=== PATIENT | female | born 1945 | race Hispanic/Latino ===

== ENCOUNTER 2017-11-28 19:06 | Inpatient (IN) | payer MEDICAID, MEDICARE, OTHER ==
[~2017-11-28] VITALS: Ht 157.5 cm; Wt 55.3 kg
[2017-11-28 19:15] VITALS: BP 146/97
--- NOTE | 2017-11-28 21:01 | PSYCH ---
DATE OF SERVICE: 11/28/2017 INITIAL PSYCHIATRIC ADMISSION NOTE CHIEF COMPLAINT: The patient was having aggressive and assaultive behavior towards family members. The patient was threatening suicide. HISTORY OF PRESENT ILLNESS: The patient is a 72-year-old female who is an involuntary admission to the [facility]. The patient is extremely confused. She is not able to answer questions very well. She was oriented to person only. She was able to state her birthdate. She did not know her age. She was disoriented to place, time, and situation. She thought she was in [place]. She reportedly came from [facility] where she was brought for medical clearance due to having aggressive behavior. She reportedly was moving from [place] to [place] with her daughter who was going to try to take care of her. The daughter was reportedly not able to take care of her due to her assaultive and aggressive behavior. The patient had also made suicidal comments and reportedly drank bleach over the past few days. She was medically cleared at the [facility] ER. The patient was cooperative during the interview. She was not able to state what her mood was like. She was in no distress during the interview. She reported sleeping well at night. She reported having a normal appetite. She denied any auditory or visual hallucinations. She did not appear to be having any auditory or visual hallucinations. She has delusional thinking related to her dementia. She has a very poor short-term memory. She was not manic or hypomanic. She has a moderate anxiety level. She is not able to give any other reliable history of present illness at this time. She did deny any physical pain. She does not know any medications that she has taken recently. She was being given Haldol and Ativan in the ER at [facility] due to aggressive behavior per reports. PAST PSYCHIATRIC HISTORY: Unknown at this time. It is unknown if she has ever taken any psychotropic medications. It is unknown if she has ever attempted suicide before. PAST MEDICAL HISTORY: Unknown. It is known that she has dementia. Other medical issues are not known at this time, and the patient was not able to give any history. CURRENT MEDICATIONS: Unknown at this time. ALLERGIES: NO KNOWN DRUG ALLERGIES. FAMILY PSYCHIATRIC HISTORY: None reported. SOCIAL HISTORY: The patient denies using alcohol, illicit drugs or tobacco. The patient reported having 4 children. She denies being . She reported being from [place]. She was not able to give any other reliable social history at this time. OBJECTIVE VITAL SIGNS: Temperature is 98.7, pulse is 73, respirations 19, O2 saturations 98% on room air, blood pressure is 146/97. The patient was in no physical pain or distress at the time of the interview. REVIEW OF SYSTEMS: CONSTITUTIONAL: No recent changes in weight. No fatigue. No insomnia. NEUROLOGICAL: No tremors. No weakness. No dizziness. PSYCHIATRIC: Positive for depression. Positive for anxiety. Positive for delusional thinking. Positive for hallucinations. No ezekiel. GASTROINTESTINAL: No diarrhea, no constipation, no nausea, no vomiting, no gross symptoms. GENITOURINARY: No problems urinating. No pain on urination reported. CARDIOVASCULAR: No chest pain or chest palpitations. RESPIRATORY: No shortness of breath. No wheezing or coughing. SKIN: No skin problems reported. ENDOCRINE: No heat or cold intolerance. EXTREMITIES: No swelling or edema. EYES: No recent changes in vision. EARS: No recent changes in hearing. Review of systems is otherwise negative and reviewed by Dr. Carpenter. The patient will be seeing Dr. Weir for general medical health issues. MENTAL STATUS EXAMINATION: MUSCLE STRENGTH AND TONE: Within normal limits for age. GAIT AND STATION: Within normal limits for age. APPEARANCE: Well groomed and good hygiene. Appears stated age. Casual attire. Normal weight. ATTITUDE AND BEHAVIOR: Uncooperative. Poor eye contact. Psychomotor agitation in the past 24 hours. MOOD AND AFFECT: Mood is up and down. Affect is labile. ATTENTION/CONCENTRATION: Poor attention and poor concentration. SPEECH: Low volume and low grade. JUDGMENT/INSIGHT: Poor judgment and poor insight. THOUGHT PROCESS: Disorganized. Loose and tangential. LANGUAGE: Lithuanian. THOUGHT CONTENT: Negative for suicidal or homicidal ideation currently. Negative for auditory or visual hallucinations currently. Negative for paranoia currently. FUND OF KNOWLEDGE: Below average. ASSOCIATIONS: Loose associations. MEMORY: Recent and remote memory are both impaired. STRENGTHS: Current physical health. WEAKNESSES: Poor insight and judgment. Poor memory. ASSESSMENT: Delusional disorder; Alzheimer-type dementia with behavior disturbance; generalized anxiety disorder; depression. TREATMENT PLAN: 1. The patient will be an involuntary admission at the [facility]. The patient will be monitored closely for behaviors. 2. The patient will be started on Risperdal 0.25 mg p.o. b.i.d. The patient will be started on Haldol 2 mg p.o. or IM every 4 hours p.r.n. agitation. The patient will be started on Ativan 0.5 mg p.o. or IM every 4 hours p.r.n. anxiety. 3. The patient will see Dr. Weir or Dr. Ohara for general medical health issues. 4. The patient was encouraged to participate in all groups and activities. Sue Carpenter IV MD DR: /laurel JOB# [id number]
[2017-11-28] MEDS ORDERED: HALDOL PO PRN (21:30)
[2017-11-28] MEDS ORDERED: ATIVAN IM PRN (21:30)
[2017-11-28] MEDS ORDERED: HALDOL IM PRN (21:30)
[2017-11-28] MEDS ORDERED: RISPERDAL PO ONE (22:00)
--- NOTE | 2017-11-28 22:00 | NUR ---
ADMIT Patient admitted to BHU at [facility] with dx of delusional disorder by Dr Carpenter. Patient arrived ambulatory with 2 [place] officers and [facility] information security systems instructor. Patient to be discharged to fdc on discharge from unit by Dr Carpenter. Patient involuntary.
[2017-11-29 07:45] VITALS: BP 101/64
--- NOTE | 2017-11-29 12:10 | NUR ---
SYMPTOMATOLOGY: PT WAS ADMITTED FOR BEHAVIORS SHE WAS EXHIBITING AT HOME. PT RECENTLY MOVED HERE FROM [place] AND WAS LIVING WITH HER DAUGHTER IN [place]. PT WAS BROUGHT TO [facility] BY HER FAMILY TO GET EVALUATED. PT WAS NOT ACTING LIKE HER SELF, REFUSING TO SHOWER, HITTING FAMILY, VOICING SUICIDAL IDEATIONS, HEARING VOICES, AND BANGING HER HEAD. PT WAS INVOLUNTARILY COMMITTED INTO THE BEHAVIORAL HEALTH UNIT FOR FURTHER MANAGEMENT. GOAL UPON DISCHARGE IS TO GO INTO A RESIDENTIAL. SS TO CONTINUE TO FOLLOW AND ASSIST WITH DISCHARGE PLANNING. Addendum: 11/30/17 at 1610 by Irina RODRIGUEZ CM Amended: Links added.
--- NOTE | 2017-11-29 12:14 | NUR ---
MMSE SCORE 11: FINDINGS INDICATE SIGNIFICANT IMPAIRMENTS. Addendum: 11/29/17 at 1217 by Irina RODRIGUEZ CM Amended: Links added.
--- NOTE | 2017-11-29 12:17 | NUR ---
GMAS SCORE : FINDINGS INDICATE PT IS WITHIN THE "NORMAL" RANGE. Addendum: 11/29/17 at 1217 by Irina RODRIGUEZ CM Amended: Links added.
--- NOTE | 2017-11-29 17:21 | NUR ---
PIRP P: Altered thought process I: Monitor for changes in usual behavior, assess for hallucinations or delusions, provide task-oriented activities, q15 min monitoring, give clear and simple instructions, redirect with verbalization, give medications as ordered, assist with differentiating between internal and external reality, reinforce unit rules, provide 1:1 to encourage expression of feelings R: Pt has had pleasant, cooperative affect throughout shift. Has not exhibited threatening or combative behaviors, has been cooperative with ADLs, medical dermatologist, and group activities. Interacts appropriately with staff and peers, alert and oriented to self. Became tearful after lunch, believed someone stole her wallet, was able to redirect. Wanders @ times, but has not been exit-seeking. Denies depression, anxiety, SI/HI. States, "I like people. I like talking to them. I'm going to do what I need to do to get better and if that means being here, then I'm ok with it." P: Pt reports she will take her medicine and participate to "get better."
[2017-11-29 19:48] VITALS: BP 137/72
[2017-11-29] MEDS: RISPERDAL PO SCH (20:30)
--- NOTE | 2017-11-29 22:19 | NUR ---
Behavior pt has exhibited inappropriate behavior this p.m. several attempts are made to redirect without success. pt wonders in hallway, stating she wants to go home and wants to speak to her daughter. Pt. cont to become more and more agitated Ativan po offered and pt refused by 3 nursing staff then pt went to alexander phone and started calling unable to redirect pt ended up call tate mercado and an officer came to door pt cont to state she wanted to go home and that she was being held against her will pt escorted to room and received Ativan 0.5mg po for increase agitation will cont to monitor pt's behavior
--- NOTE | 2017-11-29 22:59 | CNH ---
DATE OF CONSULTATION: 11/29/2017 REFERRING PHYSICIAN: Dr. Carpenter, Psychiatry. REASON FOR CONSULTATION: Medical management of multiple medical problems. HISTORY OF PRESENT ILLNESS: The patient is a 72-year-old woman with a past medical history significant for probably some baseline dementia who was transferred here from an outside hospital for admission to the [facility] unit. She reportedly has had some aggressive behavior. She recently moved from [facility] to live with her daughter. Her functional status seems to be pretty good. Her baseline medical and mental status is unclear at this time. She does not smoke. It is not known for her to be on any routine home medications. PAST MEDICAL HISTORY: Dementia. PAST SURGICAL HISTORY: She has had forearm surgery for right forearm fracture. ALLERGIES: NO KNOWN DRUG ALLERGIES. HOME MEDICATION LIST: Does not take any routine home medications reportedly. SOCIAL HISTORY: Lives with her daughter. No alcohol, tobacco or illicit drug use history. FAMILY HISTORY: Negative for early coronary artery disease or diabetes. REVIEW OF SYSTEMS: CARDIAC: Denies chest pain, shortness of breath or dyspnea on exertion. PULMONARY: No cough, sputum production or pleuritic chest pain. GASTROINTESTINAL: No nausea, vomiting, diarrhea or constipation. All else negative in 10 point review of system except as in HPI. PHYSICAL EXAMINATION: VITAL SIGNS: Upon arrival to [facility] Unit, height 157.5 cm, weight 57.8 kilograms. Temperature 98.7, pulse of 73, respiratory rate is 19, blood pressure 146/97, O2 saturation 98% on room air. GENERAL: She is alert, in no acute distress at time of exam. HEENT: Pupils equal, round, and reactive to light. Sclerae are anicteric. Oropharynx is clear. Mucous membranes are moist. NECK: Supple, no lymphadenopathy. CARDIOVASCULAR: At time of exam is regular rate and rhythm. LUNGS: Clear bilaterally. No wheezing. ABDOMEN: Soft. Bowel sounds are present, nontender to palpation. EXTREMITIES: No cyanosis, clubbing or significant edema. NEUROLOGIC: Grossly nonfocal. LABORATORY DATA: Most recent labs from yesterday, sodium 137, potassium 3.5, chloride 109, CO2 is 20, BUN 10, creatinine 0.6, glucose 100, calcium is 8.2. CBC, white count 7.6, hemoglobin 13.0, platelets 247. Urine drug screen is negative. UA, pH is 6.5, specific gravity is 1.015, all else is essentially negative. ASSESSMENT AND PLAN: The patient is a 72-year-old woman here with dementia with aggressive behavior with no known chronic medical problems. 1. We will treat symptomatically for any p.r.n. pain and nausea. 2. Ambulate as tolerated. 3. We will follow clinically; there does not appear to be any acute medical issues with this patient at this time. Time spent on the consult, history and physical is 45 minutes on 11/29/2017. Paco Weir MD DR: CHELE/laurel JOB# [id number]
--- NOTE | 2017-11-29 23:40 | NUR ---
Reassessment pt is resting quietly at this time will cont to monitor pt's behavior
--- NOTE | 2017-11-30 04:48 | NUR ---
DUNIA P DTS.Dementia with behaviors, Alteration in Mood I Encourage patient to be medication compliant, Discourage self harm behaviors if observed. Monitor patient every 15 minutes for safety. Encourage patient to sleep 8 hours nightly. Discourage threatening assaultive behavior. Observe for unusual behavior. R Patient has been medication compliant until last pm when she was mad that she could not leave unit. Patent said she was leaving to go to [place] and we were not going to stop her. Nurses attempted to explain to her that she was in [facility] of [facility] and that Dr would let her go home when she was feeling better. Patient mad and called Social Group Worker then called [place] [employer] using phone on wall then trying to hit nursing staff with phone when we got close to her. Patient was also hitting wall with phone crayon painter. Patient was escorted to her room and received an injection. Patient has not displayed any self harming behaviors and has been monitored every 15 minutes. Patient has slept 6 hours so far .Threatening assaultive behavior was discouraged . Patient had done well helping other patient and talking to peers until she became agitated and mad last pm P Continue plan of care.
[2017-11-30 07:46] VITALS: BP 113/65
[2017-11-30] MEDS: RISPERDAL PO SCH ×2 (08:36→20:42)
--- NOTE | 2017-11-30 15:32 | NUR ---
PIRP P: Altered thought process I: Monitor for changes in usual behavior, q15 min monitoring, assess for hallucinations and delusions, assist with differentiating between internal and external reality, give clear and simple instructions, give medications as ordered, re-orient to surroundings, reinforce unit rules, alternate rest/activity, provide 1:1 to encourage expression of feelings, provide task-oriented activities R: Pt has had pleasant, cooperative affect majority of shift. Began increasingly restless and confused after lunch. Began wandering a[place]ander, asking staff if she could leave or call her daughter. Has poor memory, is alert and oriented to self. Denies depression, anxiety, SI/HI. Exhibits varying delusions, but has been able to be redirected with verbalization. States, "I wouldn't say I'm happy, but I'm not mad or anything like that. My grandkids are ok, so is my daughter, so I'm ok with that." Interacts appropriately with staff and peers. Has not exhibited threatening or combative behaviors. P: Pt reports she is going to call a Taxi service and go back to [place] to get her purse and keys from her daughter.
[2017-11-30] MEDS: ATIVAN PO PRN (19:32)
--- NOTE | 2017-11-30 19:35 | NUR ---
Behaviors pt has been exhibiting inappropriate behavior she has been wondering in hallway going into peers room requiring redirection pt is crying and asking peers and staff to help her get home several attemps made to reorient pt without success. pt is becoming more anxious received Ativan mg po at this time will cont to monitor pt's behavior
[2017-11-30 20:00] VITALS: BP 140/69
--- NOTE | 2017-11-30 20:39 | NUR ---
Reassessment pt cont to ask about going home and her daughter but is able to be redirected at times cont to be intrusive with peers and requires redirection will cont. to monitor pt's behavior
--- NOTE | 2017-11-30 21:20 | NUR ---
Demographic information Patients daughter Geni Cuellar called and reported that she would be gone for 2 weeks and that her sister Pauly Maxwell would be available if needed. Pauly Maxwell is patients power of privacy attorney. Pauly Maxwell phone number is [phone]. PBX notified and will correct demographic sheet and fax to [facility] to place in patients chart.
--- NOTE | 2017-12-01 05:39 | NUR ---
PIRP P DTS I Patient to be given meds as ordered by . Discourage self harming behaviors. Monitor for patient safety every 15 minutes. Encourage patient to sleep 8 hours nightly. Encourage patient to eat well balanced meals. R Patient has taken meds as directed . Patient has not displayed any self harming behaviors tonight. Patient has been monitored for safety every 15 minutes . Patient has slept 5 hours. Patient did have a snack last pm and tolerated well. Patient thinking she was going home to day to do to [place] with her daughter. It was explained to patient that she was in [facility] and Dr will discharge her when he feels she is ready. Patient did finally go to bed and to sleep. P Continue plan of care.
[2017-12-01] MEDS: TYLENOL PO PRN (07:41)
[2017-12-01] MEDS: RISPERDAL PO SCH ×2 (07:41→20:04)
[2017-12-01 08:18] VITALS: BP 143/71
[2017-12-01] MEDS ORDERED: TYLENOL #3 PO PRN (13:30)
--- NOTE | 2017-12-01 15:20 | NUR ---
PIRP: P; ALTERATION IN MOOD I: MONITOR PT. Q 15 MINUTES, PROVIDE SAFE AND SUPPORTIVE ENVIRONMENT, PROVIDE MEDICATION ORDERED BY PHYSICIAN, PROVIDE 1:1 ALLOWING PT. TO EXPRESS THOUGHTS AND FEELINGS, PROVIDE QUIET ENVIRONMENT FOR SLEEP AT NIGHT. MONITOR AND RECORD % OF EACH MEAL DAILY. R: Q 15 MINUTE CHECKS DONE, PT. HAS A SAFE AND SUPPORTIVE ENVIRONMENT, PT. TAKING MEDS ORDERED BY PHYSICIAN. PT. SLEPT 7.25 HOURS LAST NIGHT. ATE 90% FOR BREAKFAST, 75% FOR LUNCH. P: CONTINUE CURRENT TX PLAN
--- NOTE | 2017-12-01 16:00 | NUR ---
VSEE: PT. SEEN DR. AKBAR VIA VSEE. ORDER RECIEVED TO START CELEXA 10 MG DAILY
--- NOTE | 2017-12-01 18:00 | NUR ---
anxiety pt pacing in [place]ander and exit seeking. When trying to redirect pt pt asks for keys and purse. Explained to pt that I do not have keys nor purse, pt states "Ok I will call the mesmerist." Unable to redirect pt. Ativan administered per prn order. No s/s of distress noted. Will cont to monitor
[2017-12-01] MEDS: ATIVAN PO PRN ×2 (18:16→21:31)
[2017-12-01 19:35] VITALS: BP 155/83
--- NOTE | 2017-12-01 21:47 | NUR ---
Medication Patient is pacing alexander and is in and out of room. Patient keeps asking for purse, keys, and cell phone. Verbalized to patient we do not have any of her belongings. I have made several attempts to redirect patient but no success. Patient is becoming more anxious and is tearful asking for her daughter. Administered Ativan 0.5mg po per prn order. Will continue to monitor patient. MAIA Gao has been notified.
--- NOTE | 2017-12-02 06:03 | NUR ---
PIRP P- ALTERATION IN MOOD I- PROVIDE MEDICATION ORDERED,PROVIDE SAFE AND SUPPORTIVE ENVIRONMENT,PROVIDE 1:1 INTERVENTION ALLOWING PT. TO VOICE FEELINGS AND THOUGHTS. R- PT. WAS ORIENTED TO NAME AND MONTH. WANDERED IN HALLWAY,DAY ROOM AND ATTEMPTED TO GO INTO PEERS' ROOMS AND REQUIRED REDIRECTING. ATTENDED GROUP AND ATE SNACKS AND PARTICIPATED IN GROUP GAME WITH PROMPTING. PT. DID NOT EXHIBIT AGGRESSION. TOOK MEDICATION ORDERED. PT. FOLLOWED NURSES AROUND. PT. GOT UP SEVERAL TIMES DURING THE NIGHT LOOKING FOR HER CAR,KEYS AND CELL PHONE AND WAS HARD TO REDIRECT BACK TO HER ROOM. PT. RESTED IN BED WITH EYES CLOSED FOR 5.75 HOURS OF THIS TIME TONIGHT. P- WILL CONTINUE WITH CURRENT TX. PLAN.
[2017-12-02 07:15] VITALS: BP 128/71
[2017-12-02] MEDS: ATIVAN PO PRN ×3 (07:17→16:45)
[2017-12-02] MEDS: RISPERDAL PO SCH ×2 (09:03→20:22)
[2017-12-02] MEDS: CELEXA PO SCH (09:04)
--- NOTE | 2017-12-02 15:02 | NUR ---
PIRP: P: DTS I; MONITOR Q 15 MINUTES , PROVIDE SAFE AND SUPPORTIVE ENVIRONMENT, OBSERVE AND REPORT CHANGES IN UNUSUAL BEHAVIOR, ENCOURAGE DAILY GROUP ATTENDANCE. PROVIDE MEDICATION ORDERED. R: PT. IS MONITORED EVERY 15 MINUTES, PT. HAS A SAFE AND SUPPORTIVE ENVIRONMENT, NO UNUSUAL BEHAVIOR THIS SHIFT. PT. IS IN THE DAY ROOM DURING GROUP BUT DID NOT PARTICIPATE. PT. TAKES ALL MEDICATIONS ORDERED. PT. HAD A PRN ATIVAN 0.5 MG PO.THIS MORNING. PT. WAS PACING THE PACKER GOING INTO OTHER PTS. ROOMS, SHE WAS AGITATED AND COULD NOT BE REDIRECTED. PT.CALMED DOWN AFTER THE PRN BUT STILL PACED AND WANDERED IN THE DAY ROOM AND PACKER. PT. DENIES ANY S/I. PT. TRIES TO WANDER BEHIND THE NURSES STATION BUT IS REDIRECTED. P: CONTINUE CURRENT TX PLAN. Addendum: 12/02/17 at 1743 by Anita Licona RN RN [phone] PT. WAS PACING THE FLOOR, COMING BEHIND THE NURSES STATION, GOING INTO PT. ROOMS, PT. UNABLE TO SIT STILL. EVERY FEW MINUTES SHE WAS LOOKING FOR HER DAUGHTER AND HER PURSE. PT. WANTING TO GO DOWN STAIRS. PT. UNABLE TO REDIRECT. PRN ATIVAN 0.5 MG GIVEN. 1440 PT. CALMER. PT. IS UP AND DOWN OUT OF CHAIR. PT. IS ABLE TO BE REDIRECTED
--- NOTE | 2017-12-02 16:45 | NUR ---
PRN: PT. IS AGITATED, GOING INTO PT. ROOMS, PACING THE PACKER AND THE DAY ROOM. PT. IS UNABLE TO STAY SEATED. SHE WILL SIT DOWN AND THEN RIGHT BACK UP. SHE GETS MAD WHEN TRYING TO REDIRECT HER. SHE WANTS TO GO TO THE DR. AND GET HER OWN MEDICATION. PT. UNABLE TO BE REDIRECTED. PRN ATIVAN 0.5MG GIVEN PO.
--- NOTE | 2017-12-02 17:53 | NUR ---
F/U PRN: PT. IS CALMER AND ABLE TO BE REDIRECTED.
[2017-12-02 20:01] VITALS: BP 155/77
[2017-12-02] MEDS: TYLENOL PO PRN (20:23)
--- NOTE | 2017-12-02 21:39 | PNH ---
DATE: 12/01/2017 PSYCHIATRIC PROGRESS NOTE TIME: 2:20-2:40 HISTORY OF PRESENT ILLNESS: The patient is a 72-year-old female involuntarily admitted to the [facility]. The patient with confusion and dementia with this cognitive decline and behavioral disturbance. She became very aggressive and assaultive, labile, agitated, danger to people around her. Daughter was unable to take care of her due to her assaultive and aggressive behavior. The patient also made several suicide comments and reportedly drank bleach a few days prior to admission. Medically cleared at [facility] ER. Depressed mood; disturbed sleep, appetite, energy, concentration; delusional thought; paranoid thought feeling that people want to hurt her, harm her, want to steal from her. The patient is showing some improvement at this point with medication therapy to be outlined later. She is participating fully in all groups, therapies, and activities; however, she is symptomatic and remains a candidate for ongoing hospitalization. OBJECTIVE: VITAL SIGNS: Blood pressure 143/71, pulse 81, respirations 20, temperature 98.2, oxygen saturation 96%. REVIEW OF SYSTEMS: HEENT: Normal. RESPIRATORY: No shortness of breath, coughing or wheezing. CARDIAC: No chest pain or palpitations. GASTROINTESTINAL: No nausea, vomiting, diarrhea or constipation. GENITOURINARY: No difficulty with urination. EXTREMITIES: No swelling or edema. MUSCULOSKELETAL: No muscle pain. NEUROLOGIC: Normal. ENDOCRINE: Normal. MENTAL STATUS EXAMINATION: Reveals an alert female with decreased psychomotor activity. Concentration and memory decreased. Speech and language are normal. Orientation decreased. Intelligence is average. Mood assessed as depressed. Affect constricted. Insight and judgment are poor. Thought is illogical with some delusional thought. ASSESSMENT AND PLAN: DIAGNOSES: AXIS I: 1. Delusional disorder. 2. Major depressive disorder. 3. Dementia with behavioral disturbance. TREATMENT PLAN: 1. [facility] being observed closely. 2. She has been placed on medications, specifically Risperdal 0.25 mg 1 time a day for delusional thought. 3. Celexa 10 mg a day for depression initiated today. 4. She is participating in groups, therapies, and activities. 5. The patient will be discharged likely to a prison setting when it is felt she represents no risk or danger to herself or others. David Crow MD DR: JILL/laurel JOB# [id number]
--- NOTE | 2017-12-03 06:15 | NUR ---
PIRP P-ALTERATION IN MOOD I-PROVIDE MEDICATION ORDERED,Q 15 MIN. MONITORING,PROVIDE SAFE AND SUPPORTIVE. R- PT. WAS ORIENTED TO NAME NOT YEAR OR MONTH. STATED SHE WAS SAD BUT COULD NOT RATE IT. WAS TEARFUL AT TIMES. TALKED ABOUT HOW HER EXHUSBAND WAS MEAN TO HER WHEN THEY WERE . ATTENDED GROUP AND TALKED ABOUT HER GRANDCHILDREN AND HOW SHE MISSES THEM.TOOK MEDICATION ORDERED.PT. FOLLOWED STAFF AROUND AND ATTEMPTED TO GO BEHIND NURSE'S DESK. P- WILL CONTINUE WITH CURRENT TX. PLAN.
[2017-12-03 08:00] VITALS: BP 123/63
[2017-12-03] MEDS: RISPERDAL PO SCH ×2 (08:29→20:08)
[2017-12-03] MEDS: CELEXA PO SCH (08:29)
--- NOTE | 2017-12-03 16:26 | NUR ---
DUNIA P: Altered thought process I: Assess for hallucinations and delusions, q15 min monitoring, monitor for changes in usual behavior, give clear and simple instructions, redirect with verbalization, reinforce unit rules, give medications as ordered, assist with differentiating between internal and external reality, provide reality orientation, encourage participation in ADLs R: Pt has had pleasant, cooperative affect throughout shift. Pt has become increasingly restless throughout shift, but has been able to redirect with verbalization. Forgetful and exhibits varying delusions, is not exit-seeking, but does report she needs to go back home to [place]. Denies depression, anxiety, SI/HI. States, "I'm ok. I know I need to be here to get better with my sickness. I just miss my grandson and granddaughter." Has been cooperative with ADLs, interacts appropriately with staff and peers. Has not exhibited any threatening or combative behaviors. P: Pt reports she will talk to Dr. Crow tomorrow so that she can let him know she needs to go home.
[2017-12-03] MEDS: TYLENOL PO PRN (17:56)
[2017-12-03 19:24] VITALS: BP 149/70
[2017-12-03] MEDS: ATIVAN PO PRN (20:28)
--- NOTE | 2017-12-03 20:36 | NUR ---
BEHAVIORS PT. HAS BEEN WANDERING IN HALLWAY LOOKING FOR HER PURSE ,SAYING HER PILLS ARE IN HER PURSE AND STATING SHE NEEDS TO CALL HER SON TO COME GET HER AND SHE SAYS HE DOES NOT WANT HER TO BE HERE. SEVERAL ATTEMPTS HAVE BEEN MADE TO REORIENT HER WITHOUT SUCCESS. PT. STATED SHE CAN'T STAY ALL NIGHT HERE. PT. STATED SHE IS GOING TO CALL THE POLICE IF WE DID NOT TAKE HER HOME. ATIVAN 0.5 MG PO PRN GIVEN AT 2027. WILL CONTINUE TO MONITOR.
--- NOTE | 2017-12-04 02:21 | NUR ---
PIRP P-ALTERATION IN THOUGHT PROCESS I- PROVIDE MEDICATION ORDERED,Q 15 MIN. MONITORING,PROVIDE 1:1 INTERVENTION ALLOWING PT. TO EXPRESS THOUGHTS AND FEELINGS,PROVIDE SAFE AND SUPPORTIVE ENVIRONMENT. R- PT. WAS ORIENTED TIMES ONE TO NAME.DENIES SI. PT. EXHIBITED ANXIETY ,SEE PREVIOUS NOTE, PT. RATED DEPRESSION 5 AND ANXIETY 0 ON ASSESSMENT. TOOK MEDICATION ORDERED. PT. TOOK MALE PEER'S PUDDING OUT OF HIS HAND AND ATTEMPTED TO FEED HIM.,ALTHOUGH PEER WAS FEEDING HIMSELF,PT. WAS REDIRECTED BY STAFF BUT SHE INSISTED SHE NEEDED TO FEED HIM. PT. WAS REDIRECTED.PT. WAS CALLING MALE PEER BY THE WRONG NAME LIKE SHE DID LAST NIGHT ALSO. HARD TO REDIRECT AT TIMES. REPEATEDLY ASKING THE SAME QUESTIONS AND MAKING THE SAME STATEMENTS .PT. HAS NOT EXHIBITED DTS TONIGHT. FOLLOWS NURSES AROUND AND REQUIRES REDIRECTING. ATTEMPTS TO COME BEHIND NURSE'S DESK AT TIMES. PT. STATES FREQUENTLY THAT SHE NEEDS TO GO HOME. IN BED RESTING WITH EYES CLOSED AT THIS TIME. P- WILL CONTINUE WITH CURRENT TX. PLAN.
--- NOTE | 2017-12-04 02:39 | NUR ---
BEHAVIORS AT HS PT. TOLD MALE PEER TO COME AND SLEEP WITH HER, CALLING HIM SOME OTHER NAME AND WHEN STAFF REDIRECTED HER SHE SAID WHY NOT I HAVE KNOWN HIM FOR A LONG TIME.
[2017-12-04] MEDS: CELEXA PO SCH (08:05)
[2017-12-04] MEDS: RISPERDAL PO SCH ×2 (08:05→20:07)
[2017-12-04 08:10] VITALS: BP 128/89
--- NOTE | 2017-12-04 11:21 | NUR ---
BEHAVIOR PT IN HALLWAY, PACING AND STATING THAT HER DAUGHTERS DO NOT WANT TO DO ANYTHING WITH HER.PT DECLARING THAT SHE WANTS TO LEAVE, EXIT SEEKING. ATTEMPTED TO RE-DIRECT MULTIPLE TIMES, PATIENT REFUSING RE-DIRECTION AT TIS TIME. PRN 0.5MG ATIVAN GIVEN .
[2017-12-04] MEDS: ATIVAN PO PRN ×2 (11:52→20:11)
[2017-12-04] MEDS: TYLENOL PO PRN (12:14)
--- NOTE | 2017-12-04 13:19 | NUR ---
BEHAVIOR PATIENT CALM, NO NOGER PACING, STILL CONFUSED, SITTING WITH CONSTRUCTION LABORER DISCUSSING DESIRES FOR HELP ON FINDING A PLACE TO GO ON DISCHARGE.
--- NOTE | 2017-12-04 17:47 | NUR ---
PIRP: P: altered thought process. I: Provide medications as ordered by physician. Encourage attendance and participation of all groups. Assist patient in differentiating between internal and external reality. Allow patient to voice feelings and concerns. Monitor patient behaviors for changes that may indicate risk of injury to self or others. R: Patient has taken all medication as ordered and has required a PRN Ativan for anxious behavior earlier today in the shift. She has been cooperative and pleasant. P: Continue current plan of care.
[2017-12-04 19:46] VITALS: BP 145/69
--- NOTE | 2017-12-04 23:37 | NUR ---
PIRP P- ALTERED THOUGHT PROCESS I- PROVIDE SAFE AND SUPPORTIVE ENVIRONMENT,Q 15 MIN. MONITORING,PROVIDE MEDICATION ORDERED..PROVIDE 1:1 INTERVENTION ALLOWING PT. TO EXPRESS THOUGHTS AND FEELINGS. R-PT. ORIENTED TO NAME NOT MONTH OR YEAR. DENIED DEPRESSION AND ANXIETY. PT. DID EXHIBIT ANXIETY. ATTENDED GROUP,ATE SNACKS AND PARTICIPATED IN EXERCISES. PT. STATED SHE WANTED TO GO HOME NOW AND ASKED NURSE REPEATEDLY TO TAKE HER HOME. SHE STATED HER DAUGHTER TOOK HER CAR AND SOME OF HER THINGS AND THAT SHE WAS UPSET ABOUT THAT. PT. STATED SHE WAS AFRAID OF THE MALE PEER AND WANTED TO KNOW IF HE WAS SLEEPING HERE TONIGHT. SHE REPEATEDLY INSISTED THAT SHE HAD TAKEN CARE OF THE MALE PEER IN [place] AND CALLED HIM LUCIAN. HE KEPT TELLING HER HIS NAME WAS NOT LUCIAN AND SHE HAD NEVER TAKEN CARE OF HIM. PT. REPEATEDLY PT. CONTINUE TO ESCALATE.,SEVERAL ATTEMPTS WERE MADE TO REDIRECT BUT WAS WITHOUT SUCCESS .ATIVAN 0.5 MG PO PRN GIVEN AT 2010. PT. IN BED RESTING WITH EYES CLOSED AT THIS TIME. P- WILL CONTINUE WITH CURRENT TX. PLAN.
--- NOTE | 2017-12-05 05:25 | NUR ---
REST RESTING IN BED WITH EYES CLOSED AT THIS TIME. REPORT WILL BE GIVEN TO ONCOMING SHIFT.
[2017-12-05 07:54] VITALS: BP 147/80
[2017-12-05] MEDS: RISPERDAL PO SCH ×2 (08:19→20:15)
[2017-12-05] MEDS: CELEXA PO SCH (08:19)
--- NOTE | 2017-12-05 14:37 | PNH ---
DATE: 12/04/2017 PSYCHIATRIC PROGRESS NOTE TIME: 3:40-4:00. HISTORY OF PRESENT ILLNESS: This lady is a 72-year-old female involuntarily admitted to the [facility], confused with dementia with clear cognitive decline consistent with a dementing illness. The patient was moving from ____ [place] became very aggressive, assaultive, labile, agitated, danger to people around her. The patient drank bleach over a few days prior to admission with an apparent suicide attempt with depressed mood, disturbed sleep, appetite, energy and concentration. The patient at this point shows continued depression and some delusional thought, agitation, lability and assaultiveness requiring p.r.n. medication. She is a candidate for ongoing hospitalization currently. OBJECTIVE: VITAL SIGNS: Blood pressure 128/89, pulse 71, respirations 18, temperature 98.3, oxygen saturation 97%. REVIEW OF SYSTEMS: HEENT: Normal. RESPIRATORY: No shortness of breath, coughing, or wheezing. CARDIAC: No chest pain or palpitations. GASTROINTESTINAL: No nausea, vomiting, diarrhea or constipation. GENITOURINARY: No difficulty with urination. EXTREMITIES: No swelling or edema. MUSCULOSKELETAL: No muscle pain. NEUROLOGIC AND ENDOCRINE: Normal. MENTAL STATUS EXAMINATION: Reveals an alert female with decreased psychomotor activity. Concentration and memory decreased. Speech and language are normal. Orientation decreased. Intelligence is average. Mood assessed as depressed. Affect constricted. Insight and judgment are poor. Thought is illogical at times. ASSESSMENT AND PLAN: DIAGNOSES: AXIS I: 1. Major depressive disorder, severe. 2. Delusional disorder. 3. Dementia with behavioral disturbance. AXIS II: Deferred. AXIS III: Refer to past medical history. TREATMENT PLAN: 1. This patient was admitted involuntarily representing a risk or danger to herself and others. 2. She has been placed on medications, specifically Celexa 10 mg a day and Risperdal 0.25 mg a day. 3. She is participating in groups, therapies and activities. 4. The patient will be discharged to an outpatient setting when it is felt she no longer represents any risk or danger to herself or others. David Crow MD DR: JILL/laurel JOB# [id number]
--- NOTE | 2017-12-05 17:35 | NUR ---
PIRP: P: DTS I: MONITOR PT. Q 15 MINUTES, PROVIDE SAFE AND SUPPORTIVE ENVIRONMENT, OBSERVE AND REPORT ANY UNUSUAL CHANGES IN BEHAVIOR,ENCOURAGE ATTENDANCE IN GROUPS AND PARTICIPATION. PROVIDE MEDS ORDERED. Q 15 MINUTE CHECK R: PT. MONITORED Q 15 MINUTES, SAFE AND SUPPORTIVE ENVIRONMENT PROVIDED. UNUSUAL BEHAVIOR NOTED, NO PRN'S GIVEN THIS SHIFT, PT. HAS BEEN ATTENDING GROUP AND PARTICIPATING, MED GIVEN ORDERED. Q 15 MINUTE CHECKS DONE. SAFE AND SUPPORTIVE ENVIRONMENT PROVIDED. PT. CALM AND COOPERATIVE. CONTINUE CURRENT TX PLAN.
[2017-12-05 19:32] VITALS: BP 158/87
[2017-12-05] MEDS: TYLENOL PO PRN (19:58)
--- NOTE | 2017-12-06 04:17 | NUR ---
PIRP P DTS I Patient will take meds as ordered by Discourage patient from self harm behaviors if observed. Monitor every 15 minutes for safety. Encourage sleep for 8 hours a night. Discourage threatening assaultive behavior if observed. Observe for unusual behavior. R Patient has taken meds as directed. Patient has not displayed any self harming behaviors or assaultive behaviors. Patient has been observed every 15 minutes for safety. Patient has slept 6.25 hours so far this night. Patient has been cooperative and has not displayed any unusual behavior tonight. P Continue plan of care.
[2017-12-06 07:51] VITALS: BP 132/58
--- NOTE | 2017-12-06 08:36 | NUR ---
Tx team Pt was seen by Dr. Crow and tx team. Received orders to increase scheduled Celexa, see EMAR.
[2017-12-06] MEDS: RISPERDAL PO SCH ×2 (09:36→20:07)
[2017-12-06] MEDS: CELEXA PO SCH (09:36)
--- NOTE | 2017-12-06 10:17 | NUR ---
PLACEMENT: SS VISITED WITH PT'S DAUGHTER TOBY WHO IS POA. PT'S DAUGHTER DOES NOT HAVE A PREFERENCE ON WHICH [facility] PT GOES TO. PT'S DAUGHTER STATED "MY SISTER CAN'T TAKE CARE OF HER SHE HAS TOO MANY PEOPLE IN HER HOUSE, AND I CAN'T BECAUSE I HAVE A PAYEE. PLUS WE ARE SCARED SHE WILL WONDER OFF AND WE WILL NOT BE ABLE TO FIND HER". SS REACHED OUT TO LEGACY, BUT AFTER REVIEWING CLINICAL PT WAS DENIED. SS REACHED OUT TO [employer] [facility] AND FAXED CLINICAL. PT IS CURRENTLY PENDING ACCEPTANCE INTO [facility] AT THIS TIME.
--- NOTE | 2017-12-06 17:26 | NUR ---
PIRP P: Altered thought process, alteration in mood I: q15 min monitoring, monitor for changes in usual behavior, assess for delusional thoughts, assist with differentiating between internal and external reality, give clear and simple instructions, reinforce unit rules, provide safe and supportive environment, provide task-oriented activities, provide 1:1 to encourage expression of feelings, assess reasons for irritability, teach s/s of dementia, teach appropriate boundaries, teach relaxation techniques R: Pt has had pleasant, cooperative affect throughout shift. Was irritable in A.M., had stated, "I'm bored. I don't see my family. I came to visit them, and I ended up in here." Later on in shift became more sociable and interacted appropriately, stated, "I feel a lot better. I'm walking more than I usually do. It's a good thing." Pt denies depression, anxiety, SI/HI. States, "I'm jainism, we don't believe in that kind of thing." Has taken medications as ordered, participates in group activities. No threatening or combative behaviors exhibited. P: Celexa increased, see EMAR.
[2017-12-06 19:42] VITALS: BP 127/95
--- NOTE | 2017-12-07 01:06 | PNH ---
DATE: 12/06/2017 HISTORY OF PRESENT ILLNESS: The patient is a 72-year-old female involuntarily admitted to the [facility] or [facility]. Extremely confused, decreased cognitive function consistent with an Alzheimer's type dementia with behavioral disturbance. Had gone to [facility] for medical clearance prior to admission. The patient is assaultive, aggressive, labile, agitated, made suicidal comments, reportedly drank bleach, depressed mood, disturbed sleep, appetite, energy and concentration. Positive anhedonia. The patient remains depressed, angry, labile. Positive vegetative symptoms. Positive delusional thoughts related to her dementing illness. She currently, as outlined, is having all of the symptoms and showing some improvement; however, remains a candidate for ongoing hospitalization. OBJECTIVE: VITAL SIGNS: Temperature 98.2, pulse 67, respirations 18, oxygen saturation 97%, blood pressure 132/58. REVIEW OF SYSTEMS: HEENT: Normal. RESPIRATORY: No shortness of breath, coughing, or wheezing. CARDIAC: No chest pain or palpitations. GASTROINTESTINAL: No nausea, vomiting, diarrhea or constipation. GENITOURINARY: No difficulty with urination. EXTREMITIES: No swelling or edema. MUSCULOSKELETAL: No muscle pain. NEUROLOGIC: Normal. ENDOCRINE: Normal. MENTAL STATUS EXAMINATION: Reveals an alert female with decreased psychomotor activity. Concentration and memory decreased. Speech and language are normal. Orientation decreased. Intelligence is average. Mood assessed as depressed. Affect constricted. Insight and judgment are poor. Thought is illogical with some delusional thought. ASSESSMENT AND PLAN: DIAGNOSES: AXIS I: 1. Major depressive disorder. 2. Delusional disorder. 3. Dementia with behavioral disturbance. AXIS II: Deferred. AXIS III: Refer to past medical history. TREATMENT PLAN: 1. This patient was admitted involuntarily to the [facility] and has been observed closely. 2. She was placed on medications, specifically Celexa, increased today to 20 mg a day and Risperdal 0.25 mg a day. 3. She is participating in groups, therapies and activities. 4. She will be discharged to either her daughter's home or a custodial setting when it is felt she no longer represents any risk or danger. David Crow MD DR: JILL/laurel JOB# [id number]
[2017-12-07 08:06] VITALS: BP 109/53
[2017-12-07] MEDS: CELEXA PO SCH (08:41)
[2017-12-07] MEDS: RISPERDAL PO SCH ×2 (08:41→20:38)
[2017-12-07 19:30] VITALS: BP 157/68
--- NOTE | 2017-12-08 06:00 | NUR ---
PIRP P- DTS I- Monitor every 15 minutes for safety. Provide safe and supportive environment. Provide 1:1 each shift allowing patient to express feelings and/or identify stressors. Encourage daily social service, activity therapy and nursing groups. Observe and report changes in usual behavior that may indicate increased danger to others. R- Patient has been monitored every 15 minutes and has remained free of harm to self or others. She has taken her medications and has slept 7.5hrs P- Continue current treatment plan
[2017-12-08] MEDS: RISPERDAL PO SCH ×2 (08:18→20:06)
[2017-12-08] MEDS: CELEXA PO SCH (08:18)
[2017-12-08 09:00] VITALS: BP 122/73
--- NOTE | 2017-12-08 14:05 | NUR ---
Tx team Pt was seen by Dr. Crow via telemed, no new orders received @ this time.
--- NOTE | 2017-12-08 15:29 | NUR ---
[facility]: DARNELL POP WITH [facility] CALLED AND STATED THAT THEY WOULD SEND SOMEONE OUT ON MONDAY TO EVALUATE PT TO SEE IF SHE WAS APPROPRIATE FOR THEIR UNIT. NO FURTHER DISCHARGE NEEDS AT THIS TIME. SS TO CONTINUE TO FOLLOW AND ASSIST WITH DISCHARGE PLANNING .
--- NOTE | 2017-12-08 18:09 | NUR ---
PIRP P: Altered thought process I: q15 min monitoring, monitor for changes in usual behavior, give clear and simple instructions, provide task-oriented activities, provide 1:1 to encourage expression of feelings, provide safe and supportive environment, give medications as ordered, teach appropriate boundaries R: Pt has had pleasant, cooperative affect throughout shift. Has taken medications as ordered, has participated in group activities with prompting. Denies depression, anxiety, SI/HI. No combative or threatening behaviors exhibited, no hallucinations noted. Pt believes she is going home, but is able to be redirected. States, "I feel pretty good. I'm not hurting anywhere, so I don't have anything to be upset about. I slept good too." Believes she went to [place], [place] from [place] to "think about moving here." P: Pt will be evaluated by [facility] on 12/11/17 for possible placement.
[2017-12-08 19:08] VITALS: BP 137/75
--- NOTE | 2017-12-09 04:54 | NUR ---
PIRP P- ALTERED THOUGHT PROCESS I-PROVIDE MEDICATION ORDERED,Q 15 MIN. MONITORING,PROVIDE SAFE AND SUPPORTIVE ENVIRONMENT. R- PT. ORIENTED TO NAME NOT MONTH OR YEAR. DENIES SI TONIGHT. QUIET, COOPERATIVE AND PLEASANT. DENIES DEPRESSION AND ANXIETY. TOOK MEDICATION ORDERED. ATTENDED GROUP AND LISTENED TO RELAXATION MUSIC. HAS RESTED IN BED WITH EYES CLOSED FOR 7 HOURS OF THIS TIME. P- WILL CONTINUE WITH CURRENT TX. PLAN.
--- NOTE | 2017-12-09 05:33 | PNH ---
DATE: 12/08/2017 PSYCHIATRIC PROGRESS NOTE TIME: 3:00 to 3:20. HISTORY OF PRESENT ILLNESS: The patient is a 72-year-old female admitted involuntarily to the [facility]. The patient quite confused, was admitted with major depression with delusional thought and dementia with behavioral disturbance. She presented with depressed mood; disturbed sleep, appetite, energy and concentration; feelings of hopelessness, helplessness and worthlessness, and suicidal ideation having consumed some bleach. The patient at this point has been placed on medication and is participating in groups, therapies and activities. She is showing improvement with decreasing depressive symptoms, decreasing thoughts of suicide at all and good motivation for positive a change. Based on this, it is likely she will be discharged very soon to a custodial setting. Her cognitive function has declined, although this is consistent with her diagnosis of an Alzheimer's type dementia. OBJECTIVE: VITAL SIGNS: Temperature is 98, pulse 71, respirations 16, oxygen saturation 95%, blood pressure 122/73. REVIEW OF SYSTEMS: HEENT: Normal. RESPIRATORY: No shortness of breath, coughing or wheezing. CARDIAC: No chest pain or palpitations. GASTROINTESTINAL: No nausea, vomiting, diarrhea or constipation. GENITOURINARY: No difficulty with urination. EXTREMITIES: No swelling or edema. MUSCULOSKELETAL: No muscle pain. NEUROLOGIC: Normal. ENDOCRINE: Normal. MENTAL STATUS EXAMINATION: Reveals an alert female with decreased psychomotor activity. Concentration and memory decreased. Speech and language are normal. Orientation decreased. Intelligence average. Mood assessed, depressed. Affect constricted. Insight and judgment improving. DIAGNOSES: AXIS I: 1. Major depressive disorder, severe. 2. Delusional disorder. 3. Dementia with behavioral disturbance. AXIS II: Deferred. AXIS III: Refer to past medical history. TREATMENT PLAN: 1. This patient was admitted involuntarily and has been observed closely. 2. She is participating in groups, therapies and activities. 3. She was placed on medications, specifically Celexa 20 mg a day and Risperdal 0.25 mg at bedtime. 4. The patient will be discharged to a custodial setting soon. David Crow MD DR: JILL/laurel JOB# [id number]
[2017-12-09 07:42] VITALS: BP 125/61
[2017-12-09] MEDS: CELEXA PO SCH (07:54)
[2017-12-09] MEDS: RISPERDAL PO SCH ×2 (07:54→20:06)
--- NOTE | 2017-12-09 14:44 | NUR ---
PIRP: P: ALTERATION IN MOOD I: PROVIDE SAFE AND SUPPORTIVE ENVIRONMENT. MONITOR PT Q 15 MINUTES FOR SAFETY, PROVIDE MEDS ORDERED, MONITOR AND RECORD % OF MEAL EACH DAY, PROVIDE QUIET ENVIRONMENT FOR SLEEP AT NIGHT. R: PT. HAS A SAFE AND SUPPORTIVE ENVIRONMENT HERE, PT. IS MONITORED Q 15 MINUTES, PT. IS TAKING MEDS ORDERED BY PHYSICIAN, PT. ATE 100% OF BREAKFAST THIS MORNING., PT. SLEPT 8 HOURS LAST NIGHT. PT. CALM IS COOPERATIVE DENIES ANY DEPRESSION , ANXIETY OR S/I. P: CONTINUE CURRENT TX PLAN.
[2017-12-09 19:36] VITALS: BP 140/84
--- NOTE | 2017-12-10 04:58 | NUR ---
pirp P- ALTERATION IN MOOD I- Q 15 MIN. MONITORING,PROVIDE SAFE AND SUPPORTIVE ENVIRONMENT,PROVIDE MEDICATION ORDERED. R- ORIENTED TO NAME NOT MONTH OR YEAR. DENIES DEPRESSION AND ANXIETY. DENIES SI. ATTENDED GROUP ,ATE SNACKS AND PARTICIPATED IN GROUP ACTIVITY. TOOK MEDICATION ORDERED. PT. TRIES TO BE HELPFUL TO PEERS. PT. HAS BEEN COOPERATIVE AND PLEASANT. PT. FORGETS WHERE HER ROOM IS AND REQUIRES REMINDING. RESTING IN BED WITH EYES CLOSED AT THIS TIME. P- WILL CONTINUE WITH CURRENT TX. PLAN.
[2017-12-10 07:07] VITALS: BP 121/64
[2017-12-10] MEDS: RISPERDAL PO SCH ×2 (08:00→20:12)
[2017-12-10] MEDS: CELEXA PO SCH (08:00)
--- NOTE | 2017-12-10 14:54 | NUR ---
PIRP: P: DTS I: MONITOR Q 15 MINUTES FOR SAFETY, PROVIDE SAFE AND SUPPORTIVE ENVIRONMENT, OBSERVE AND REPORT ANY UNUSUAL CHANGES IN BEHAVIOR, ENCOURAGE DAILY GROUP ATTENDANCE AND PARTICIPATION, PROVIDE MEDS ORDERED BY PHYSICIAN. R: PT. IS MONITORED Q 15 MINUTES FOR SAFETY. PT. HAS A SAFE AND SUPPORTIVE ENVIRONMENT, PT. HAS NOT HAD ANY UNUSUAL BEHAVIOR, PT. HAS TAKEN ALL MEDS PRESCRIBED BY PHYSICIAN. PT. HAS BEEN CALM AND COOPERATIVE. PT. DENIES ANY DEPRESSION, ANXIETY OR SUICIDAL IDEATION. P: CONTINUE CURRENT TX PLAN Addendum: 12/10/17 at 1539 by Anita Licona RN RN GROUPS-PT. DID HER GOALS THIS MORNING, WATCHED A MOVIE AND HELPED A LITTLE PUTTING A PUZZLE TOGETHER. PT. SAID SHE COULDN'T SEE GOOD ENOUGH TO PUT IT TOGETHER.
[2017-12-10 19:27] VITALS: BP 135/72
--- NOTE | 2017-12-11 04:31 | NUR ---
P- P DTS AND ALTERED THOUGHT PROCESS I-PROVIDE MEDICATION ORDERED,Q 15 MIN. MONITORING,PROVIDE SAFE AND SUPPORTIVE ENVIRONMENT. R- PT. WAS ORIENTED TIMES THREE. RATED DEPRESSION AND ANXIETY 6. DENIES SI TONIGHT.PT. WAS RESTLESS AND WANDERED IN HALLWAY AND AT TIMES SAT IN THE DAY ROOM.TOOK MEDICATION ORDERED.PT. LYING IN BED WITH EYES CLOSED AT THIS TIME. P-WILL CONTINUE WITH CURRENT TX. PLAN. Addendum: 12/11/17 at 0437 by Tita Gao RN RN WRONG PT.
--- NOTE | 2017-12-11 04:38 | NUR ---
PIRP- P-DTS AND ALTERED THOUGHT PROCESS I PROVIDE MEDICATION ORDERED. Q 15 MIN. MONITORING,PROVIDE SAFE AND SUPPORTIVE ENVIRONMENT. R- PT. WAS ORIENTED TO NAME NOT MONTH OR YEAR. EXHIBITED PLEASANT AFFECT.DENIES DEPRESSION AND ANXIETY. TOOK MEDICATION ORDERED. ATTENDED GROUP.DID NOT EXHIBIT DTS OR OTHERS.IS RESTING IN BED WITH EYES CLOSED. P- WILL CONTINUE WITH CURRENT TX. PLAN.
[2017-12-11 07:09] VITALS: BP 144/75
[2017-12-11] MEDS: CELEXA PO SCH (07:59)
[2017-12-11] MEDS: RISPERDAL PO SCH ×2 (08:00→20:08)
--- NOTE | 2017-12-11 15:39 | NUR ---
VSEE Pt was seen by Dr. Crow via telemed. Plans for pt to discharge to [facility] if accepted.
--- NOTE | 2017-12-11 16:23 | NUR ---
PIRP P: Altered thought process I: Q15 min monitoring, assess for delusions, monitor for changes in usual behavior, assist with differentiating between internal and external reality, provide task-oriented activities, provide safe and supportive environment, provide 1:1 to encourage expression of feelings, assess mood, re-orient to surroundings, give medications as ordered, redirect with verbalization, give clear and simple instructions R: Pt has had pleasant affect throughout shift. In A.M. when discussing placement, pt did become upset, stated, "They don't want me (her daughters.) I know my daughters, they can help me. They just don't want to." Participated in group activities, has taken medications as ordered. Interacts appropriately with staff and peers. Has not been exit-seeking and has not exhibited threatening or combative behaviors. Exhibits varying delusions, no hallucinations noted. Denies depression, anxiety, SI/HI. P: Plans for pt to discharge to [facility] if accepted.
[2017-12-11 19:05] VITALS: BP 124/96
[2017-12-11 21:30] VITALS: BP 140/71
--- NOTE | 2017-12-12 04:41 | NUR ---
pirp- P-altered thought process I-PROVIDE SAFE AND SUPPORTIVE ENVIRONMENT,Q 15 MIN. MONITORING,PROVIDE MEDICATION ORDERED AND PROVIDE 1:1 INTERVENTION ALLOWING PT. TO EXPRESS THOUGHTS AND FEELINGS. R-PT. ORIENTED TO NAME NOT MONTH OR YEAR. DENIES DEPRESSION AND ANXIETY. HAS NOT EXHIBITED DTS OR DTO THIS SHIFT. TOOK MEDICATION ORDERED. PLEASANT AFFECT. ATE SNACKS AND PARTICIPATED IN GROUP ACTIVITIES. STATES SHE IS WONDERING WHO WILL PICK HER UP WHEN SHE IS DISMISSED. IS RESTING IN BED WITH EYES CLOSED AT THIS TIME. P- WILL CONTINUE WITH CURRENT TX. PLAN.
--- NOTE | 2017-12-12 05:09 | NUR ---
BEHAVIORS PT. CONTINUES TO WALK PUSHING W/C GOING UP AND DOWN HALLWAY . WHEN HE GOES BY THE NURSE'S DESK HER STARTS MOANING AND TALKING TO SELF AND WHEN HE PASSES NURSE'S DESK HE STOPS UNTIL HE GOES BY AGAIN.
[2017-12-12 07:19] VITALS: BP 99/45
[2017-12-12] MEDS: CELEXA PO SCH (08:17)
[2017-12-12] MEDS: RISPERDAL PO SCH (08:17)
[2017-12-12] MEDS ORDERED: CITA10TA8 PO (09:52)
[2017-12-12] MEDS ORDERED: RISP0.2518 PO (09:52)
[2017-12-12 10:47] VITALS: BP 99/45
--- NOTE | 2017-12-12 10:47 | NUR ---
Discharge Pt transported off unit via wheelchair by Charles Blancas LVN. No distress noted. Discharge information given to Shilpi Aranda, from [facility].
--- NOTE | 2017-12-12 15:13 | PNH ---
DATE: 12/11/2017 PSYCHIATRIC PROGRESS NOTE TIME: 3:20 to 3:40. HISTORY OF PRESENT ILLNESS: The patient is a 72-year-old female who was involuntarily admitted to the [facility]. The patient is confused, cognitive declined, disoriented to place, time, birthdate. The patient reportedly had moved from [facility] with her daughter. Daughter was unable to care for her due to assaultive, aggressive, labile behavior, suicidal comments and reportedly drank bleach over a few days prior to admission. Medically cleared at [facility]. The patient with depressed mood, disturbed sleep, appetite, energy and concentration. Positive feelings of hopelessness, helplessness, worthlessness. The patient is showing improvement at this point. She has been placed on medication, which has been decreased. Depressive symptoms, elimination of any delusional thought. No suicidal ideation. She is participating in groups, therapies and activities and compliant with medication. OBJECTIVE: VITAL SIGNS: Temperature 97.9, pulse 72, respirations 18, oxygen saturation 98%, blood pressure 144/85. REVIEW OF SYSTEMS: HEENT: Normal. RESPIRATORY: No shortness of breath, coughing, or wheezing. CARDIAC: No chest pain or palpitations. GASTROINTESTINAL: No nausea, vomiting, diarrhea or constipation. GENITOURINARY: No difficulty with urination. EXTREMITIES: No swelling or edema. MUSCULOSKELETAL: No muscle pain. NEUROLOGIC: Normal. ENDOCRINE: Normal. MENTAL STATUS EXAMINATION: Reveals an alert female with decreased psychomotor activity. Concentration and memory decreased. Speech and language are normal. Orientation decreased. Intelligence is average. Mood assessed as depressed. Affect constricted. Insight and judgment fair. Thought logical and goal directed with decreased delusional thought. No suicidal ideation. ASSESSMENT AND PLAN: DIAGNOSES: AXIS I: 1. Delusional disorder. 2. Major depressive disorder. 3. Dementia with behavioral disturbance. AXIS II: Deferred. AXIS III: Refer to past medical history. TREATMENT PLAN: 1. This patient was admitted involuntarily to the [facility] and is being observed closely. 2. She was placed on medications, specifically Celexa increased to 20 mg a day, Risperdal 0.25 mg. 3. She is to be discharged to a [facility] setting likely tomorrow. David Crow MD DR: JILL/laurel JOB# [id number]
--- NOTE | 2017-12-13 22:36 | DSH ---
DATE OF DISCHARGE: 12/12/2017 HOSPITAL COURSE: The patient is a 72-year-old female admitted involuntarily to the [facility]. The patient is confused with a dementing illness with cognitive decline disoriented to place, time, and situation. She reportedly had come from the [facility] where she was brought for medical clearance to having aggressive behavior. She had aggressive, assaultive, labile behavior toward her daughter. She made suicidal comments and reportedly drank bleach. Medically cleared at [facility]. The patient was admitted to the hospital with depressive disorder, delusional disorder, and dementia with behavioral disturbance. She responded very well to treatment, medication, and therapy. The medication included Celexa to 20 mg a day and Risperdal 0.25 mg 1 time a day. She did participate in the groups and individual therapies. Her prognosis is good with regard to her depression and delusional thoughts. She will continue to have cognitive decline given the fact that she likely has an Alzheimer-type dementia. Based on this, it was elected to discharge this patient as she had reached the end point of her inpatient treatment. DISCHARGE ASSESSMENT AND PLAN: DIAGNOSES: AXIS I: 1. Delusional disorder. 2. Major depressive disorder. 3. Dementia with behavioral disturbance. AXIS II: Deferred. AXIS III: Refer to past medical history. TREATMENT PLAN: 1. The patient will be discharged to a correction setting and represents no risk or danger to herself or others. 2. She will remain on medications as outlined above. 3. She will receive treatment and therapy through the correction. David Crow MD DR: JILL/laurel JOB# [id number]
== END 2017-12-12 10:47 | DRG 42 ==
LOC: GP 19:06 → EEVIPCON 19:06
PROVIDERS: ADMIT Psychiatry & Neurology Psychiatry; ATTEND Psychiatry & Neurology Psychiatry
DX: G30.9 Alzheimer's disease, unspecified (principal); F02.81 Dementia in other diseases classified elsewhere, unspecified severity, with behavioral disturbance; F32.2 Major depressive disorder, single episode, severe without psychotic features; R45.851 Suicidal ideations; F22 Delusional disorders; F41.1 Generalized anxiety disorder; Z79.899 Other long term (current) drug therapy; Z91.5 Personal history of self-harm
CPT/HCPCS: 36415; 80061; 83036; 97150; 97165; J2060; J3490; G8987; G8988